=== PATIENT | female | born 1995 | race Caucasian/White ===

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

== ENCOUNTER 2017-03-27 19:50 | Inpatient (IN) ==
[2017-03-27] MEDS ORDERED: BRETHINE SUBQ PRN (19:52)
[2017-03-27] MEDS ORDERED: PEPCID IV PRN (19:52)
[2017-03-27] MEDS ORDERED: STADOL IV PRN ×2 (19:52)
[2017-03-27] MEDS ORDERED: ZOFRAN IV PRN (19:52)
[2017-03-27] MEDS ORDERED: AMBIEN PO PRN (19:52)
[2017-03-27] MEDS ORDERED: LR 1,000 ML IV ONE (19:52)
[2017-03-27] MEDS ORDERED: TYLENOL PO PRN (19:52)
[2017-03-27] MEDS ORDERED: KEFZOL 1 GM/D5W 1 GM/50 ML IVPB IV PRN (19:52)
[2017-03-27] MEDS ORDERED: PEPCID PO PRN (19:52)
[2017-03-27] MEDS ORDERED: AMPICILLIN 2 GM/NS 2 GM/100 ML IVPB IV ONE (21:00)
[2017-03-27 21:29] LABS: URINE SOURCE VOIDED
[2017-03-27 21:36] LABS: BILIRUBIN URINE NEGATIVE (NEGATIVE); BLOOD URINE 1+ (NEGATIVE); CLARITY CLEAR (CLEAR); COLOR YELLOW; GLUCOSE URINE NEGATIVE (NEGATIVE); LEUKOCYTES URINE 1+ (NEGATIVE); NITRITE URINE NEGATIVE (NEGATIVE); PROTEIN URINE TRACE mg/dL (NEGATIVE); SP GRAVITY URINE 1.025; UROBILINOGEN URINE 4+(12 mg/dL)
[2017-03-27 21:40] LABS: UR AMPHETAMINES QUAL NONE DETECTED (NONE DETECT); UR BARBITUATES QUAL NONE DETECTED (NONE DETECT); UR BENZODIAZEPIN QUAL NONE DETECTED (NONE DETECT); UR CANNABINOIDS QUAL NONE DETECTED (NONE DETECT); UR COCAINE QUAL NONE DETECTED (NONE DETECT); UR MDMA QUAL NONE DETECTED (NONE DETECT); UR METHADONE QUAL NONE DETECTED (NONE DETECT); UR METHAMPHETAMINE QUAL NONE DETECTED (NONE DETECT); UR OPIATES QUAL NONE DETECTED (NONE DETECT); UR OXYCODONE QUAL NONE DETECTED (NONE DETECT); UR PCP QUAL NONE DETECTED (NONE DETECT); UR TCA QUAL NONE DETECTED (NONE DETECT)
[2017-03-27 22:09] LABS: BANDS 4 % (0-1); BASO% 0.1 % (0.0-0.8); EOS# 0.05 X1000 (0.0-0.7); EOS% 0.5 % (0.0-10.0); HEMATOCRIT 29.2 % (37.0-47.0); HEMOGLOBIN 9.1 g/dL (12.0-16.0); IMM GRAN# 0.02 X1000 (0.0-0.04); IMM GRAN% 0.2 % (0.0-0.5); LYMPH# 1.64 X1000 (1.2-3.4); LYMPH% 17.6 % (20.5-51.1); MANUAL DIFF NEEDED? YES; MCHC 31.2 g/dL (33-37); MCV 70.7 FL (81-99); MONO# 0.46 X1000 (0.11-0.59); MONO% 4.9 % (1.7-9.3); MPV 12.5 FL (7.4-10.4); NEUT% 76.7 % (42.2-75.2); PLT 192 X1000 (130-400); RBC 4.13 XMIL (4.2-5.4)
[2017-03-27 22:10] LABS: BASO 1 % (0-1); HYPOCHROM 1+; LYMPHS 19 % (21-51); STOMATOCYTES OCCASIONAL
[2017-03-28] MEDS ORDERED: CYTOTEC PO ONE
[2017-03-28] MEDS: AMPICILLIN 1 GM/NS 1 GM/50 ML IVPB IV SCH ×3 (01:05→08:51)
[2017-03-28] MEDS: STADOL IV PRN ×3 (01:05→08:08)
[2017-03-28] MEDS: LR 1,000 ML IV SCH ×2 (04:53→08:51)
[2017-03-28] MEDS ORDERED: PITOCIN 30 UNITS/LR 30 UNITS/500 ML IV.SOLN IV SCH (06:00)
[2017-03-28] MEDS ORDERED: MINERAL OIL PO ONE (07:54)
[2017-03-28] MEDS ORDERED: XYLOCAINE-MPF 1% INJ ONE ×2 (07:54→08:00)
[2017-03-28] MEDS ORDERED: FENTANYL-BUPIV-NS 2 MCG-0.1% 200 ML EPIDURAL PRN (07:58)
[2017-03-28] MEDS ORDERED: M-M-R II VACCINE SUBQ ONE (10:54)
[2017-03-28] MEDS ORDERED: NORCO-5 PO PRN (10:54)
[2017-03-28] MEDS ORDERED: MINERAL OIL PO PRN (10:54)
[2017-03-28] MEDS ORDERED: PITOCIN 30 UNITS/LR 30 UNITS/500 ML IV.SOLN IV ONE (10:54)
[2017-03-28] MEDS ORDERED: BENADRYL PO PRN (10:54)
[2017-03-28] MEDS ORDERED: PERCOCET-5 PO PRN (10:54)
[2017-03-28] MEDS ORDERED: BOOSTRIX VACCINE IM ONE (10:54)
[2017-03-28] MEDS ORDERED: AMBIEN PO PRN (10:54)
[2017-03-28] MEDS ORDERED: BENADRYL IV PRN (10:54)
[2017-03-28] MEDS ORDERED: CYTOTEC PO PRN (10:54)
[2017-03-28] MEDS ORDERED: PITOCIN 20 UNITS/LR 20 UNITS/1,000 ML IV.SOLN IV SCH (10:54)
[2017-03-28] MEDS ORDERED: HYDROXYZINE PO PRN (10:54)
[2017-03-28] MEDS ORDERED: PITOCIN IM PRN (10:54)
[2017-03-28] MEDS ORDERED: PERCOCET-10 PO PRN (10:54)
[2017-03-28] MEDS ORDERED: HYDROXYZINE IM PRN (10:54)
[2017-03-28] MEDS ORDERED: PERI MEDS (DERMOPLAST/NUPERCAINAL/TUCKS) MISC PRN (10:54)
[2017-03-28] MEDS ORDERED: XYLOCAINE-MPF 1% INJ PRN (10:54)
[2017-03-28] MEDS: NORCO-10 PO PRN ×2 (14:01→23:02)
[2017-03-28] MEDS: MOTRIN PO PRN ×2 (14:01→23:02)
[2017-03-28] MEDS: PERICOLACE PO SCH (23:02)
[2017-03-29 06:06] LABS: BASO% 0.2 % (0.0-0.8); EOS# 0.06 X1000 (0.0-0.7); EOS% 0.9 % (0.0-10.0); HEMATOCRIT 23.7 % (37.0-47.0); HEMOGLOBIN 6.9 g/dL (12.0-16.0); IMM GRAN# 0.01 X1000 (0.0-0.04); IMM GRAN% 0.2 % (0.0-0.5); LYMPH# 1.35 X1000 (1.2-3.4); LYMPH% 21.2 % (20.5-51.1); MANUAL DIFF NEEDED? YES; MCH 21.5 PG (27-31); MCHC 29.1 g/dL (33-37); MCV 73.8 FL (81-99); MONO# 0.52 X1000 (0.11-0.59); MONO% 8.2 % (1.7-9.3); MPV 11.9 FL (7.4-10.4); NEUT% 69.3 % (42.2-75.2); PLT 122 X1000 (130-400); RBC 3.21 XMIL (4.2-5.4)
[2017-03-29 07:44] LABS: LYMPHS 18 % (21-51); MONO 4 % (1-9)
[2017-03-29] MEDS: MOTRIN PO PRN (11:27)
[2017-03-29] MEDS: NORCO-10 PO PRN ×2 (11:28→22:44)
[2017-03-29 14:27] LABS: HEMATOCRIT 23.3 % (37.0-47.0); HEMOGLOBIN 7.1 g/dL (12.0-16.0); MCH 22.1 PG (27-31); MCHC 30.5 g/dL (33-37); MCV 72.6 FL (81-99); MPV 10.8 FL (7.4-10.4); RBC 3.21 XMIL (4.2-5.4)
[2017-03-29] MEDS: PERICOLACE PO SCH (20:03)
[2017-03-30] MEDS: NORCO-10 PO PRN (07:23)
[2017-03-30] MEDS: MOTRIN PO PRN (07:24)
[2017-03-30 11:25] VITALS: BP 117/79
[2017-03-30] MEDS ORDERED: PNEUMOVAX 23 IM ONE (12:30)
== END 2017-03-30 13:55 | disposition home or self-care (01) ==
LOC: P.LD 19:50 → P.WC 03-29 17:07
PROVIDERS: ADMIT Obstetrics & Gynecology; ATTEND Obstetrics & Gynecology